=== PATIENT | male | born 1975 | race Caucasian/White ===

== ENCOUNTER 2022-10-27 16:02 | Emergency (ER) | payer BC ==
[2022-10-27 16:13] VITALS: RESP 18; BMI 33.0
[2022-10-27] MEDS ORDERED: FAMOTIDINE 20 MG/50 ML IVPB 20 MG/50 ML MG IVPB ONE ×2 (17:04→17:36)
[2022-10-27] MEDS ORDERED: ONDANSETRON 4 MG/2 ML VIAL IVPUSH ONE (17:04)
[2022-10-27] MEDS ORDERED: LACTATED RINGERS SOLUTION 1000 ML INFUS.BAG IV ONE (17:04)
[2022-10-27] MEDS ORDERED: ACETAMINOPHEN 1000 MG/100 ML BAG IVPB ONE (17:04)
[2022-10-27] MEDS ORDERED: ONDANSETRON 4 MG/2 ML VIAL ONE (17:37)
[2022-10-27 17:41] LABS: VENOUS BASE EXCESS 2.6 mmol/L (-2-2); VENOUS PCO2 51.6 mmHg (38-52); VENOUS PH 7.369 (7.310-7.410)
[2022-10-27 18:04] LABS: POTASSIUM 4.3 mmol/L (3.5-5.1)
[2022-10-27 18:05] LABS: INR 1.16 (0.83-1.09); PROTHROMBIN TIME (PATIENT) 13.4 SEC (9.7-13.0)
[2022-10-27 18:06] LABS: ALBUMIN 3.9 g/dl (3.4-5.0); BASO % 1.4 % (0-2.0); BLOOD UREA NITROGEN 12.8 mg/dL (7-18); CALCIUM 9.4 mg/dL (8.5-10.1); EOS % 4.5 % (0-4.5); HEMATOCRIT 43.7 % (35.4-49); HEMOGLOBIN 14.5 GM/dL (11.7-16.9); LYMPH % 15.2 % (8-40); MAGNESIUM 2.2 mg/dL (1.8-2.4); MCH 27.4 pg (25.7-33.7); MCHC 33.3 g/dl (32.0-35.9); MEAN CELL VOLUME 82.1 fl (80-96); MEAN PLT VOLUME 7.7 fl (7.5-11.1); MONO % 4.3 % (3.8-10.2); NEUT % 74.6 % (42.8-82.8); PLATELET COUNT 446 10^3/uL (134-434); RBC 5.32 M/mm3 (4.00-5.60); RDW 14.2 % (11.9-15.9); WHITE BLOOD COUNT 14.1 K/mm3 (4.0-10.0)
[2022-10-27 18:07] LABS: ACTIVATED PTT 31.9 SECONDS (25.2-36.5)
[2022-10-27 18:09] LABS: CREATININE 0.8 mg/dL (0.55-1.3)
[2022-10-27 18:11] LABS: BILIRUBIN,TOTAL 0.4 mg/dL (0.2-1); TOT PROT 7.8 g/dl (6.4-8.2)
[2022-10-27 21:39] VITALS: BP 120/77; PULSE 83; TEMP 98.3
[2022-10-27] MEDS ORDERED: MAG HYDROX/AL HYDROX/SIMETH 30 ML UNIT-DOSE CUP PO ONE (21:54)
[2022-10-27] MEDS ORDERED: MAG HYDROX/AL HYDROX/SIMETH 30 ML UNIT-DOSE CUP ONE (22:03)
== END 2022-10-27 22:16 | disposition home or self-care (01) ==
LOC: JER 16:02
PROC: 3E033GC Introduction of Other Therapeutic Substance into Peripheral Vein, Percutaneous Approach (ICD-10-PCS; principal; 2022-10-27)
PROC: 3E033NZ Introduction of Analgesics, Hypnotics, Sedatives into Peripheral Vein, Percutaneous Approach (ICD-10-PCS; 2022-10-27)
PROC: 3E033NZ Introduction of Analgesics, Hypnotics, Sedatives into Peripheral Vein, Percutaneous Approach (ICD-10-PCS; 2022-10-27)
DX: K59.00 Constipation, unspecified (principal); R10.9 Unspecified abdominal pain; R19.7 Diarrhea, unspecified; R11.2 Nausea with vomiting, unspecified; Z20.822 Contact with and (suspected) exposure to COVID-19
CPT/HCPCS: 36415; 71046-TC-FY; 74177-TC; 80053; 82010; 82803; 83605; 83690; 83735; 85025; 85610; 85730; 86850; 86900; 86901; 93005; 93010; 99285-25; C9803-CS; Q9967; U0003; U0005